=== PATIENT | female | born 1980 | race Caucasian/White ===

== ENCOUNTER 2024-03-13 09:51 | Observation (INO) ==
[~2024-03-13 09:51] MED LIST: Metoclopramide 5 MG/ML VIAL (10 mg) IV PRN; NS 0.45% 1000 ml BAG 1,000 ML IV SCH; Naloxone 0.4 mg VIAL 0.4 mg/ml 1 ml VIAL IV PRN; Ondansetron 4 mg VIAL 2 MG/ML 2 ml VIAL IV PRN
[2024-03-13] MEDS ORDERED: ceFAZolin 2 GM PREMIX 2 GM/50 ML BAG ONE (10:55)
[2024-03-13] MEDS ORDERED: Chlorhexidine MOUTHWASH 0.12% 15 ML UDC ONE (11:07)
[2024-03-13] MEDS ORDERED: Propofol 10 MG/ML 20 ML BTL ONE (11:10)
[2024-03-13] MEDS ORDERED: Ondansetron 4 mg VIAL 2 MG/ML 2 ml VIAL ONE (11:10)
[2024-03-13] MEDS ORDERED: Midazolam 2 mg/2 ml VIAL 1 mg/ml 2 ml VIAL (2 mg) ONE (11:10)
[2024-03-13] MEDS ORDERED: Rocuronium 50 mg VIAL 10 mg/ml 5 ml VIAL (50 mg) ONE ×2 (11:10→12:12)
[2024-03-13] MEDS ORDERED: Dexamethasone IV 4 MG/ML VIAL 1 ml VIAL ONE (11:10)
[2024-03-13] MEDS ORDERED: Lidocaine 2% PF 5 ML VIAL ONE (11:10)
[2024-03-13 11:21] LABS: Rapid COVID-19 Molecular Undetected (Undetected)
[2024-03-13] MEDS ORDERED: Lidocaine 1% w EPI 1:100,000 MDV 20 ML VIAL ONE (11:52)
[2024-03-13] MEDS ORDERED: Thrombin 5,000 UNITS 1 APPLIC KIT - topical use - TOPICAL ONE (11:52)
[2024-03-13] MEDS ORDERED: ceFAZolin VIAL VIAL ONE (11:52)
[2024-03-13] MEDS ORDERED: fentaNYL 100 mcg/2 ml 50 MCG/ML VIAL ONE ×3 (12:04→15:14)
[2024-03-13] MEDS ORDERED: Calcium Carb (TUMS) 500 mg CHEW TAB PO PRN (14:30)
[2024-03-13] MEDS ORDERED: Dextran 70/Hypromellose Tears Eye Drops 15 ml BTL (for Artificials Tears) BOTH EYES PRN (14:30)
[2024-03-13] MEDS ORDERED: Ondansetron 4 mg VIAL 2 MG/ML 2 ml VIAL IV PRN (14:30)
[2024-03-13] MEDS ORDERED: Phenol 1.4% Throat Spray BTL MT PRN (14:30)
[2024-03-13] MEDS: fentaNYL 100 mcg/2 ml 50 MCG/ML VIAL IV PRN (14:40)
[2024-03-13] MEDS ORDERED: HYDROmorphone 1 MG/1 ML SYRINGE ONE (14:47)
[2024-03-13] MEDS: HYDROmorphone 1 MG/1 ML SYRINGE IV SLOW PU ONE (14:48)
[2024-03-13] MEDS: Acetaminophen IV 1 GM/100ML 1,000 MG/100 ML BAG IV ONE (16:08)
[2024-03-13] MEDS: Buffered Lidocaine 1% SYRIN 1 ml INTRADERM ONE (16:08)
[2024-03-13] MEDS: Scopolamine 1 mg/72hr PATCH TRANSDERM ONE (16:08)
[2024-03-13] MEDS: Lactated Ringers 1000 ml BAG 1,000 ML IV SCH ×2 (16:09→16:10)
[2024-03-13] MEDS: HYDROcodone/ACETAMIN 5/325 mg TAB PO PRN (16:50)
[2024-03-13] MEDS: Benzocaine/Menthol LOZ MT PRN (16:51)
[2024-03-14 10:21] VITALS: BP 133/98
== END 2024-03-14 12:05 | disposition home or self-care (01) ==
LOC: OR 09:51 → SSU 09:51
PROVIDERS: ADMIT Neurological Surgery; ATTEND Neurological Surgery